=== PATIENT | female | born 1950 | race Two or more races ===

== ENCOUNTER 2024-11-19 09:15 | Emergency (ER) | payer MEDICARE, MEDICAID, SELFPAY ==
[2024-11-19 09:18] VITALS: BP 147/75; PULSE 62; RESP 17; TEMP 36.4; O2SAT 96
[2024-11-19 09:46] VITALS: PULSE 64; RESP 18; O2SAT 96
--- NOTE | 2024-11-19 09:53 | PD.EDDIZZY ---
ED Dizzyness RME/HPI General Chief Complaint: Dizziness Stated Complaint: DIZZINESS Time Seen by Provider: 11/19/24 09:53 Arrival date/time: 11/19/24 09:15 RME / HPI RME / HPI Narrative: 74 year old female with history of CVA, hypertension, diabetes, hyperlipidemia, anxiety presents to the ED BIBA from home for evaluation of dizziness beginning after waking today. Described as feeling drunk that is accompanied by feeling anxious, nausea, and a headache. States the dizziness is minimally improved with closing her eyes and aggravated with movements. Denies fevers, chills, ear ringing, vomiting, diarrhea, or urinary symptoms. Related Data Home Medications ?Medication ?Instructions ?Recorded ?Confirmed Benazepril Hcl 20 mg PO QAM ##0 11/14/09 06/01/19 Sertraline Hcl 50 mg PO QAM ##0 11/14/09 06/01/19 Metformin Hcl 500 tab PO QDAY ##0 10/30/13 06/01/19 simvastatin 20 mg tablet (Zocor) 20 mg PO HS #0 tabs 10/30/13 06/01/19 Levothyroxine * (SYNTHROID *) 125 mcg PO ACBR #0 tabs 01/30/15 06/01/19 Calcium Carbonate/Vitamin D3 1 tab PO BID ##0 12/08/15 06/01/19 (Calcium 600 + D Tablet) pantoprazole 40 mg tablet,delayed 40 mg PO QDAY ##0 03/13/16 06/01/19 release (Protonix) clonazepam 1 mg tablet 1 mg PO BID 06/01/19 06/01/19 Previous Rx's ?Medication ?Instructions ?Recorded ondansetron 4 mg disintegrating 4 mg PO Q6H PRN nausea and 06/01/19 tablet vomiting #7 tabs acetaminophen 650 mg 650 mg PO TID PRN pain #30 tabs 05/21/22 tablet,extended release (Tylenol 8 Hour) meclizine 25 mg tablet 25 mg PO TID #20 tabs 05/21/22 cephalexin 500 mg capsule 500 mg PO TID #21 caps 06/23/24 Allergies Allergy/AdvReac Type Severity Reaction Status Date / Time carisoprodol Allergy Severe HALLUCINATE Verified 06/22/24 16:14 S codeine Allergy Severe HALLUCINATE Verified 06/22/24 16:14 S fluoxetine (From Prozac) Allergy Severe Hallucinati Verified 06/22/24 16:14 ng hydrocodone Allergy Severe HALLUCINATE Verified 06/22/24 16:14 S Review of Systems Review of Systems Narrative Review of Systems: Gen: No fever, no chills, no weight loss EYES: No discharge, no visual changes, no pain HEENT: No ear pain, no congestion, no sore throat PULM: no shortness of breath, no cough, no congestion CV: No chest pain, no dyspnea on exertion, no palpitations, no chest tightness GI: +nausea, no vomiting, no diarrhea, no pain, no constipation : No frequency, no urgency,? no dysuria Musc/skel: No joint pain, no back pain Skin: No rash, no ecchymosis, no lesions Psyc: +anxious. No hallucinations, no depression Heme/Lymph: No easy bleeding or bruising tendencies Neuro: +dizziness, +headache, no weakness Past Medical History Past Medical History NEUROLOGIC: Positive Neurological Disorders and Cerebrovascular Accident CARDIAC: Negative Congestive Heart Failure RESPIRATORY: Negative Chronic Obstructive Pulmonary Disease (COPD) GENITOURINARY: Negative Renal Disease ENDOCRINE: Positive Diabetes Mellitus Type 2; Negative Diabetes Mellitus Type 1 PSYCHO/SOCIAL: Positive Anxiety OTHER HISTORY: Positive Blood Transfusions Surgical History SURGICAL: Positive Abdominal Surgery (cholecystectomy ) Social History SMOKING STATUS: Never smoker ED Exam Narrative Physical exam: GENERAL APPEARANCE: AxOx4, patient keeps her eyes closed during exam, nontoxic appearing HEENT: NC, AT. MMM. EOMIoropharynx clear. NECK: Supple without lymphadenopathy. No stiffness or restricted ROM. HEART: Normal rate and regular rhythm, normal S1/S1, no m/r/g LUNGS: CTAB, moving air well. No crackles or wheezes are heard. ABDOMEN: Soft, nontender, nondistended with good bowel sounds heard. BACK: No midline C/T/L spine pain or deformity, No CVAT, no obvious deformity. EXTREMITIES: Without cyanosis, clubbing or edema. MUSCULOSKELETAL: FROM of all major joints, no chest tenderness NEUROLOGICAL: Grossly nonfocal. Alert and oriented, moving all 4 extremities. CN not formally tested but appear grossly intact. Skin: Warm and dry without any rash. Course Quality Measures none Orders Category Date Time Status Acetaminophen Tab [Tylenol Tab] Med 11/19/24 09:53 Discontinued 650 mg PO X1 ONE Diazepam [Valium] Med 11/19/24 09:53 Discontinued 5 mg PO X1 ONE Meclizine HCl [Antivert] Med 11/19/24 09:53 Discontinued 50 mg PO X1 ONE Reevaluation(s) Reevaluation #1: Patient has her eyes open and states symptoms have improved. Patient remains clinically stable throughout the emergency department visit. Patient is amenable to discharge. Strict return precautions were outlined. Patient was discharged in stable condition. Time: 10:34 Vital Signs Vital signs: Vital Signs Temperature 97.6 F 11/19/24 09:18 Pulse Rate 62 11/19/24 09:18 Respiratory Rate 17 11/19/24 09:18 Blood Pressure 147/75 H 11/19/24 09:18 Pulse Oximetry (%) 96 11/19/24 09:18 Oxygen Delivery Method Room Air 11/19/24 09:18 Pulse ox is 96% on room air which is adequate. Dizziness MDM Narrative MDM Narrative:: Sarah Beth Valderrama am scribing for and in the presence of Dr. Reed. Patient data External records reviewed:: [facility] previous records (I reviewed ED visit on 06/22/2024 ) and EMS form Clinical information provided by:: patient and EMS Social determinants that could affect healthcare access:: mental health (hx of anxiety ) Patient has the following chronic illnesses:: CVA, hypertension, diabetes, hyperlipidemia, anxiety How is presenting disease/condition affected by chronic disease/condition?: exacerbated by Evaluation data The following diagnostics were reviewed and interpreted by me:: other (specify) (No diagnostics ordered ) Lab and/or radiology exams considered but not ordered:: None Interpretation Summary: As noted above Medications / Prescriptions Medications or Prescriptions considered but not ordered:: None Medication administrations:: Medication Administration History Discontinued Medications Acetaminophen (Acetaminophen 325 Mg Tablet) 650 mg PO X1 ONE Stop: 11/19/24 09:54 Last Admin: 11/19/24 10:01 Dose: 650 mg Documented By: VG Diazepam (Diazepam 5 Mg Tablet) 5 mg PO X1 ONE Stop: 11/19/24 09:54 Last Admin: 11/19/24 10:02 Dose: 5 mg Documented By: VG Meclizine HCl (Meclizine Hcl 25 Mg Tablet) 50 mg PO X1 ONE Stop: 11/19/24 09:54 Last Admin: 11/19/24 10:01 Dose: 50 mg Documented By: MADISON See above Consultations Consultation(s) initiated? (list below): No Diagnosis Dizziness Differential Diagnosis: adverse reaction to drug, benign paroxysmal positional vertigo, orthostatic hypotension and transient cerebral ischemia Most likely diagnosis given after review of the tests above:: Anxiety Admission Indicated Admission indicated?: not indicated Explain why admission is indicated or not indicated:: Does not meet admission criteria Admission Request Was there a request for admission?: No Disposition Plan Disposition Plan: Discharge Discharge Attestation Discharge Attestation: The patient and all family members were given an opportunity to ask questions and understood the discharge instructions. Discharge instructions specifically effects, indications for sooner follow up or return to the emergency department, and the expected course of current diagnosis. Patient condition: Stable Discharge Plan Plan Patient Disposition: HOME (Self Care) Prescriptions/Referrals Prescriptions/Med Rec: No Action Benazepril Hcl 20 MG tablet 20 mg PO QAM Qty: 0 Sertraline Hcl 50 MG tablet 50 mg PO QAM Qty: 0 Metformin Hcl 500 MG tablet 500 tab PO QDAY Qty: 0 simvastatin [Zocor] 20 MG tablet 20 mg PO HS Qty: 0 Levothyroxine * (SYNTHROID *) 125 MCG tablet 125 mcg PO ACBR Qty: 0 Calcium Carbonate/Vitamin D3 (Calcium 600 + D Tablet) 1 EACH tablet 1 tab PO BID Qty: 0 pantoprazole [Protonix] 40 MG tablet,delayed release (DR/EC) 40 mg PO QDAY Qty: 0 Patient Comments: TO [employer] clonazepam 1 mg Tablet 1 mg PO BID ondansetron 4 mg tablet,disintegrating 4 mg PO Q6H PRN (Reason: nausea and vomiting) Qty: 7 0RF meclizine 25 mg tablet 25 mg PO TID Qty: 20 0RF acetaminophen [Tylenol 8 Hour] 650 mg tablet extended release 650 mg PO TID PRN (Reason: pain) Qty: 30 0RF cephalexin 500 mg capsule 500 mg PO TID Qty: 21 0RF Referrals: No Primary/Family,Physician [Primary Care Provider] - In 1 week Problem List Clinical Impression: Anxiety Patient/Caregiver Discharge Instructions Education Materials: ED Anxiety Reaction Additional Instructions: Brenda un seguimiento con camilo m?dico de atenci?n primaria en 2 a 3 d?as para volver a controlarlo. Puede janie Tylenol de venta karen seg?n sea necesario para el dolor de raman. No dude en regresar al departamento de emergencias mendez pronto vira los s?ntomas empeoren o si nota alg?n problema nuevo o preocupante. Print Language: Danish Stand Alone Forms: Carol Award Info., Patient Portal Info Letter
[2024-11-19 10:00] VITALS: BP 150/68; PULSE 57; RESP 18; TEMP 36.6; O2SAT 97
[2024-11-19] MEDS: MECLIZINE HCL 25 MG TABLET 50 MG PO (10:01)
[2024-11-19] MEDS: ACETAMINOPHEN 325 MG TABLET 650 MG PO (10:01)
[2024-11-19] MEDS: DIAZEPAM 5 MG TABLET PO ×2 (10:02→11:24)
--- NOTE | 2024-11-19 11:30 | PC.NURSE ---
PT WITH C/O DIZZINESS, HEADACHE, PAIN TO BACK OF NECK, AND ANXIETY. DAUGHTER AT BEDSIDE AND REQUESTING TO SPEAK TO DR. MADE AWARE OF SYMPTOMS AND REQUEST MADE BY DAUGHTER.
[2024-11-19] MEDS: IBUPROFEN TAB 600 MG TABLET PO (11:53)
[2024-11-19 12:00] VITALS: BP 135/64; PULSE 60; RESP 18; TEMP 36.6; O2SAT 98
--- NOTE | 2024-11-19 12:00 | PC.NURSE ---
PER ARTHUR RODRIGUEZ TO D/C PT.
== END 2024-11-19 12:01 | disposition home or self-care (01) ==
PROVIDERS: Emergency Provider Emergency Medicine
DX: F41.9 Anxiety disorder, unspecified (principal)
CPT/HCPCS: 99282; A9270